=== PATIENT | female | born 1955 | race African-American/Black ===

== ENCOUNTER 2020-11-20 13:48 | Emergency (ER) | payer OTHER, MEDICAID ==
[~2020-11-20] VITALS: Ht 167.6 cm; Wt 59.0 kg
[2020-11-20 13:52] VITALS: BP 146/84
== END 2020-11-20 14:27 | disposition home or self-care (01) ==
LOC: ER 13:48
DX: M54.5 Low back pain (principal); M54.2 Cervicalgia; Z76.0 Encounter for issue of repeat prescription

== ENCOUNTER 2020-12-28 16:20 | Emergency (ER) | payer MEDICARE, MEDICAID ==
[~2020-12-28] VITALS: Ht 170.2 cm; Wt 62.1 kg
[2020-12-28 17:04] VITALS: BP 155/95
== END 2020-12-28 19:08 | disposition home or self-care (01) ==
LOC: ER 16:20
DX: M54.5 Low back pain (principal); G89.29 Other chronic pain; G43.909 Migraine, unspecified, not intractable, without status migrainosus